=== PATIENT | female | born 1990 | race Caucasian/White ===

== ENCOUNTER 2024-05-25 06:11 | Day surgery (SDC) | payer BC ==
[~2024-05-25] VITALS: Ht 167.6 cm; Wt 75.7 kg
[2024-05-25] MEDS ORDERED: CEFAZOLIN SOD 2 GM in D5W 50 ML IV ONE (07:00)
[2024-05-25] MEDS ORDERED: fentaNYL CITRATE/PF 100 MCG/2 ML AMP ONE (07:23)
[2024-05-25] MEDS ORDERED: MORPHINE 4 MG INJ. 4 MG/ML VIAL IVP PRN ×2 (08:15)
[2024-05-25] MEDS ORDERED: HYDROmorphone 1 MG/ML INJ. CARTRIDGE IVP PRN (08:15)
[2024-05-25] MEDS ORDERED: HEPARIN SODIUM, PORCINE 10,000 UNITS/ 10 ML VIAL ONE (08:15)
[2024-05-25] MEDS ORDERED: DEXAMETHASONE SOD PHOSPHATE 4 MG/ML VIAL ONE (08:22)
[2024-05-25] MEDS ORDERED: ACETAMINOPHEN I.V. 1000 MG 100 ML IV ONE (08:30)
[2024-05-25] MEDS ORDERED: HYDROcodone/ACETAMIN 5-325 MG TAB (NORCO/ VICODIN) PO PRN (08:30)
[2024-05-25] MEDS ORDERED: ONDANSETRON HCL 4 MG/2 ML VIAL IVP PRN (08:30)
[2024-05-25] MEDS ORDERED: OXYCODONE/ACETAMINOPHEN 5-325 TABLET PO PRN ×2 (08:30)
[2024-05-25] MEDS ORDERED: IBUPROFEN 800 MG TABLET PO ONE (08:45)
[2024-05-25] MEDS: ACETAMINOPHEN I.V. 1000 MG 100 ML IV ONE (09:10)
[2024-05-25] MEDS ORDERED: ONDANSETRON HCL 4 MG/2 ML VIAL ONE (09:47)
[2024-05-25] MEDS: ONDANSETRON HCL 4 MG/2 ML VIAL IVP PRN (09:47)
[2024-05-25 12:15] VITALS: O2SAT 100
[2024-05-25 13:53] VITALS: BP_SYST 100; PULSE 78; RESP 16
== END 2024-05-25 10:24 | disposition home or self-care (01) ==
LOC: SMU 06:11 → SDS 06:11
PROVIDERS: ATTEND Specialist
DX: N93.8 Other specified abnormal uterine and vaginal bleeding (principal); N85.8 Other specified noninflammatory disorders of uterus; N85.6 Intrauterine synechiae; R10.2 Pelvic and perineal pain; M79.7 Fibromyalgia; M06.9 Rheumatoid arthritis, unspecified; Z88.8 Allergy status to other drugs, medicaments and biological substances; Z98.890 Other specified postprocedural states; Z79.899 Other long term (current) drug therapy
CPT/HCPCS: 87081; 58558; 88305; J0690; J1100; J1644; J2765; J2405; J2704; J0330; J3010; J7060; J7030; C1819; J0131